=== PATIENT | male | born 1980 | race Caucasian/White ===

== ENCOUNTER → 2019-03-14 09:49 | Outpatient (CLI) | payer OTHER, SELFPAY ==
--- NOTE | 2019-03-14 | DI.RAD.S_ITS ---
PROCEDURE: XR LUMBAR SPINE 2-3V INDICATIONS: HIP PAIN BACK PAIN BI TECHNIQUE: 3 views of the lumbar spine were acquired. COMPARISON: [facility], , -SPINE 2-3 VIEWS, 12/12/2016, 8:45. FINDINGS: Bones: No fracture or focal osseous destruction. Multilevel degenerative endplate sclerosis and spurring. Diffuse facet arthropathy. Diffuse mild narrowing of the lumbar disc spaces which appears unchanged. Mild levocurvature Soft tissues: Overlying bowel gas pattern is normal. No suspicious soft tissue calcifications. IMPRESSION: Diffuse mild lumbar spondylosis and facet arthropathy. No interval change. Mild levocurvature as before Dictated by: Wei Carter M.D. on 03/14/2019 at 16:37 Approved by: Wei Carter M.D. on 03/14/2019 at 16:38
--- NOTE | 2019-03-14 | DI.RAD.S_ITS ---
PROCEDURE: XR HIP W PEL IF DONE LT MIN 4V INDICATIONS: HIP PAIN BACK PAIN BI TECHNIQUE: AP pelvis with lateral view(s) of the left and right hip(s). COMPARISON: [facility], CT, IVP (ABD & PEL WWO CONTRAST), 03/31/2016, 11:07. FINDINGS: Bones: No fractures or dislocations. Pelvic ring appears intact. No suspicious bony lesions. Mild-moderate left hip degeneration. Mild right hip degenerative joint disease. Chronic partial left-sided sacralization of L5 with pseudoarthrosis as seen on the comparison CT. Soft tissues: The visualized bowel gas pattern is normal. No suspicious soft tissue calcifications. IMPRESSION: Mild-moderate left hip joint degeneration. Mild right hip joint degeneration. Chronic partial left-sided sacralization of L5. Dictated by: Wei Carter M.D. on 03/14/2019 at 16:35 Approved by: Wei Carter M.D. on 03/14/2019 at 16:37
== END ==
PROVIDERS: PCP Family Medicine; Visit Provider Family Medicine
DX: M54.9 Dorsalgia, unspecified (principal); M25.552 Pain in left hip; M25.551 Pain in right hip; M16.0 Bilateral primary osteoarthritis of hip; M43.27 Fusion of spine, lumbosacral region; M47.816 Spondylosis without myelopathy or radiculopathy, lumbar region
CPT/HCPCS: 72100; 73522

== ENCOUNTER → 2020-05-31 10:58 | Outpatient (CLI) | payer OTHER, SELFPAY ==
--- NOTE | 2020-05-31 11:08 | DI.RAD.S_ITS ---
PROCEDURE: XR HIP W PEL IF DONE BILAT 2V INDICATIONS: BILATERAL HIP PAIN TECHNIQUE: AP pelvis with lateral view(s) of the right and left hip(s). COMPARISON: [facility], CR, XR HIP W PEL IF DONE MARK 3TO4V, 03/14/2019, 9:56. FINDINGS: Bones: No fractures or dislocations. Pelvic ring appears intact. No suspicious bony lesions. Mild joint narrowing with periarticular osteophyte formation. Soft tissues: The visualized bowel gas pattern is normal. No suspicious soft tissue calcifications. IMPRESSION: Mild symmetric hip joint degeneration. Dictated by: Froylan Jacome [facility] Interpreted: Albert Ko MD on 05/31/2020 at 11:29 Approved by: Albert Ko M.D. on 05/31/2020 at 14:06
--- NOTE | 2020-05-31 11:08 | DI.RAD.S_ITS ---
PROCEDURE: XR LUMBAR SPINE 2-3V INDICATIONS: BACK PAIN TECHNIQUE: 3 views of the lumbar spine were acquired. COMPARISON: [facility], CR, L-SPINE 2-3 VIEWS, 12/12/2016, 8:45. [facility], CR, XR LUMBAR SPINE 2-3V, 03/14/2019, 9:56. FINDINGS: Bones: 6 [id number] vertebrae are present with transitional S1 vertebral body which is lumbarized. Trace multilevel retrolisthesis. Multilevel disc degeneration, most notably and [id number] at the transitional S1-S2 level. Mild lower lumbar spine facet joint arthropathy.. No vertebral body compression fractures. No suspicious bony lesions. Soft tissues: Overlying bowel gas pattern is normal. No suspicious soft tissue calcifications. IMPRESSION: 1. Lumbosacral transitional anatomy is present with transitional S1 vertebral body which is lumbarized. Recommend full radiographic series prior to any elective surgical intervention for confirmation. 2. Multilevel spondylosis similar to prior examination. Dictated by: Froylan ZAMORA Interpreted: Albert Ko MD on 05/31/2020 at 11:29 Approved by: Albert Ko M.D. on 05/31/2020 at 14:06
== END ==
PROVIDERS: PCP Family Medicine; Referring Provider Family Medicine; Visit Provider Family Medicine
DX: M25.551 Pain in right hip (principal); M25.552 Pain in left hip; M16.0 Bilateral primary osteoarthritis of hip; M54.5 Low back pain; M47.816 Spondylosis without myelopathy or radiculopathy, lumbar region; M53.3 Sacrococcygeal disorders, not elsewhere classified; S32.009K Unspecified fracture of unspecified lumbar vertebra, subsequent encounter for fracture with nonunion
CPT/HCPCS: 72100; 73521; 99214

== ENCOUNTER → 2020-07-14 19:10 | Outpatient (CLI) | payer OTHER, SELFPAY ==
--- NOTE | 2020-07-14 19:11 | DI.MRI.S_ITS ---
PROCEDURE: MR LUMBAR SPINE WO CON INDICATIONS: chronic progressive back pain TECHNIQUE: Noncontrast sagittal T1 spin echo and T2 fast echo, sagittal STIR, axial T1 and T2 fast spin echo through the lumbar spine. In cases with scoliosis, additional coronal T2 fast spin echo may be performed. COMPARISON: [facility], CR, XR LUMBAR SPINE 2-3V, 05/31/2020, 11:12. FINDINGS: Image quality: Partially degraded by motion artifact. Alignment and Curvature: There is a transitional element at S1. The numbering system for the current report will be the same as the numbering system for the lumbar spine plain film report dated 05/31/2020, and as denoted on the montage panel. There is a transitional element at S1. Bone Marrow: Marrow is of normal overall signal. No acute vertebral body compression fractures. Minimal reactive signal within the endplates adjacent to the L1-L2, L2-L3, L3-L4, and L4-L5 intervertebral discs. Spinal Cord: Conus medullaris terminates at the L1-L2 disc space level. Visualized cord demonstrates normal signal and size. Paraspinous Soft Tissues: No paravertebral masses. T12-L1: Normal appearance. L1-L2: Normal appearance. L2-L3: Mild disc height loss and desiccation. Mild diffuse disc bulge. Mild facet and ligamentum flavum hypertrophy. Mild epidural lipomatosis. Mild canal stenosis. Mild bilateral foraminal stenosis. L3-L4: Mild facet and ligamentum flavum hypertrophy. Mild epidural lipomatosis. Mild canal stenosis. Mild right greater than left foraminal stenosis. L4-L5: Mild facet and ligamentum flavum hypertrophy. Mild epidural lipomatosis. Mild canal stenosis. Mild bilateral foraminal stenosis. L5-S1: Mild disc height loss and desiccation. Mild diffuse disc bulge with superimposed left paracentral protrusion. Mild facet and ligamentum flavum hypertrophy. Mild canal stenosis. Moderate subarticular foraminal stenosis, right greater than left. Mild posterior deviation of the left S1 nerve root within the lateral recess. S1-S2: No significant canal, or foraminal stenosis. IMPRESSION: 1. Atypical numbering system as described above, with transitional anatomy S1. Recommend correlation with plain films and the montage panel of the current examination for numbering purposes prior to any lumbar spinal intervention. 2. Multilevel degenerative disc and facet disease, as well as ligamentum flavum hypertrophy and epidural lipomatosis. 3. Mild multilevel canal stenosis. 4. Multilevel foraminal stenoses, worst at L5-S1 where there are moderate foraminal stenosis bilaterally. 5. L5-S1 disc protrusion, causing left S1 nerve root deviation. Recommend correlation with clinical symptoms to ascertain relevance of this finding. Dictated by: Argentina Grijalva M.D. on 07/15/2020 at 8:44 Approved by: Argentina Grijalva M.D. on 07/15/2020 at 8:52
== END ==
PROVIDERS: PCP Family Medicine; Referring Provider Physical Medicine & Rehabilitation; Visit Provider Physical Medicine & Rehabilitation
DX: M47.816 Spondylosis without myelopathy or radiculopathy, lumbar region (principal); S32.009K Unspecified fracture of unspecified lumbar vertebra, subsequent encounter for fracture with nonunion; M51.36 Other intervertebral disc degeneration, lumbar region; M48.061 Spinal stenosis, lumbar region without neurogenic claudication; M51.37 Other intervertebral disc degeneration, lumbosacral region; M48.07 Spinal stenosis, lumbosacral region
CPT/HCPCS: 72148